=== PATIENT | male | born 1970 | race African-American/Black ===

== ENCOUNTER 2020-04-18 14:49 | Inpatient (IN) | payer OTHER ==
[2020-04-18 16:49] VITALS: BMI 25.4
[2020-04-18] MEDS ORDERED: BISMUTH SUBSALICYLATE 524 MG/30 ML UD PO PRN (17:14)
[2020-04-18] MEDS ORDERED: MELATONIN 5 MG TABLETS PO PRN (17:14)
[2020-04-18] MEDS ORDERED: METHOCARBAMOL 500 MG TABLET PO PRN (17:14)
[2020-04-18] MEDS ORDERED: MENTHOL/PHENOL 1 EACH UD MM PRN (17:14)
[2020-04-18] MEDS ORDERED: NICOTINE POLACRILEX 2 MG GUM BUC PRN (17:14)
[2020-04-18] MEDS ORDERED: IBUPROFEN 400 MG TABLET (FP) PO PRN (17:14)
[2020-04-18] MEDS ORDERED: MAGNESIUM HYDROX 2400MG/30ML ORAL SUSPENSION 30 ML CUP PO PRN (17:14)
[2020-04-18] MEDS ORDERED: ACETAMINOPHEN 325 MG TABLET (FP) PO PRN ×2 (17:14)
[2020-04-18] MEDS ORDERED: MAGNESIUM CITRATE 300 ML BOTTLE PO PRN (17:14)
[2020-04-18] MEDS ORDERED: MAG HYDROX/AL HYDROX/SIMETH 30 ML UNIT-DOSE CUP PO PRN (17:14)
[2020-04-18] MEDS ORDERED: diazePAM 5 MG TABLET PO PRN (17:16)
[2020-04-18] MEDS ORDERED: diazePAM 5 MG TABLET PO ONE (17:16)
[2020-04-18] MEDS ORDERED: TUBERCULIN PPD 5 TU/0.1ML VIAL ID ONE (18:17)
[2020-04-18] MEDS: PANTOPRAZOLE 20 MG TABLET PO SCH (18:26)
[2020-04-18] MEDS: diazePAM 5 MG TABLET PO SCH (21:23)
[2020-04-18] MEDS: THIAMINE HCL 100 MG TABLET (FP) PO SCH (21:23)
[2020-04-19] MEDS: diazePAM 5 MG TABLET PO SCH ×3 (06:30→22:42)
[2020-04-19 10:41] LABS: HEMATOCRIT 43.1 % (35.4-49); HEMOGLOBIN 13.8 GM/dL (11.7-16.9); MCH 26.8 pg (25.7-33.7); MCHC 31.9 g/dl (32.0-35.9); MEAN CELL VOLUME 83.9 fl (80-96); MEAN PLT VOLUME 9.9 fl (7.5-11.1); PLATELET COUNT 314 K/MM3 (134-434); RBC 5.14 M/mm3 (4.00-5.60); RDW 15.2 % (11.9-15.9); WHITE BLOOD COUNT 6.8 K/mm3 (4.0-10.0)
[2020-04-19 11:01] LABS: ALBUMIN 3.8 g/dl (3.4-5.0); BLOOD UREA NITROGEN 12.2 mg/dL (7-18); CALCIUM 8.9 mg/dL (8.5-10.1)
[2020-04-19 11:06] LABS: BILIRUBIN,TOTAL 0.9 mg/dL (0.2-1); CREATININE 1.2 mg/dL (0.55-1.3); TOT PROT 7.6 g/dl (6.4-8.2)
[2020-04-19] MEDS: PRENATAL VITAMINS W/ FOLIC ACID TABLET (FP) PO SCH (11:09)
[2020-04-19] MEDS: PANTOPRAZOLE 20 MG TABLET PO SCH (11:09)
[2020-04-19] MEDS: THIAMINE HCL 100 MG TABLET (FP) PO SCH (22:42)
[2020-04-20] MEDS ORDERED: diazePAM 5 MG TABLET PO SCH (06:00)
[2020-04-20 06:33] VITALS: TEMP 98
[2020-04-20] MEDS: PRENATAL VITAMINS W/ FOLIC ACID TABLET (FP) PO SCH (10:38)
[2020-04-20] MEDS: PANTOPRAZOLE 20 MG TABLET PO SCH (10:38)
[2020-04-20 11:33] VITALS: BP 117/74; PULSE 66
[2020-04-21] MEDS ORDERED: diazePAM 5 MG TABLET PO ONE (06:00)
== END 2020-04-20 13:22 | disposition home or self-care (01) | DRG 774 ==
LOC: YASAS 14:49 → Y5N DETOX 17:49
PROVIDERS: ADMIT Allergy & Immunology; ATTEND Allergy & Immunology
PROC: HZ2ZZZZ Detoxification Services for Substance Abuse Treatment (ICD-10-PCS; principal; 2020-04-18)
DX: F10.230 Alcohol dependence with withdrawal, uncomplicated (principal); F14.20 Cocaine dependence, uncomplicated; F17.210 Nicotine dependence, cigarettes, uncomplicated; M54.30 Sciatica, unspecified side
CPT/HCPCS: 36415; 80053; 85027; 86780; U0003